=== PATIENT | female | born 1985 | race Caucasian/White ===

== ENCOUNTER 2016-08-01 09:32 | Emergency (ER) | payer OTHER ==
[~2016-08-01] VITALS: Ht 165.1 cm; Wt 67.0 kg
[2016-08-01 09:39] VITALS: Ht 165.1 cm; Wt 67.0 kg
[2016-08-01] MEDS ORDERED: KETOROLAC 15 MG INJ IM STA (10:58)
[2016-08-01] MEDS ORDERED: DIAZEPAM 5 MG TAB PO ONE (11:00)
[2016-08-01 11:02] LABS: URINE BLOOD (Dip) POC Negative (NEGATIVE)
--- NOTE | 2016-08-01 12:05 | ERD ---
ER Documentation Chief Complaint Date/Time DATE: 08/01/16 TIME: 11:54 Chief Complaint upper back pain [id number], affecting arm movement HPI Pleasant 31-year-old female presenting to emergency department for right-sided scapular pain neck pain and back pain. Patient reports symptoms started 2 weeks ago after staying at her sister's house and sleeping on a different pillow. Patient states she is active practices yoga and body resistance training. Patient has not been exercising for the last 2 weeks. Reports pain has sharp pain radiating down right arm. Patient reports a burning sensation. patient has history of scoliosis, lumbar pain, is seen by primary care physician , treated with Neurontin. Patient has been taking all routine medication as prescribed, reports Neurontin not helping with burning sensation in the right arm. Has used [id number] Tylenol with little relief of symptoms. Has had recent x-rays in primary care. Patient denies dysuria, headache, or injury. Patient denies nausea, vomiting, fever, or chills. ROS All systems reviewed and are negative except as per history of present illness. Medications Home Meds Active Scripts Hydrocodone/Acetaminophen (Avera 5-325 Tablet) 1 Each Tablet, 1 TAB PO Q6H Y for PAIN, #7 TAB Prov:YA,ANGIE 08/01/16 Discontinued Scripts Diazepam* (Valium*) 5 Mg Tablet, 5 MG PO Q8, #10 TAB Prov:YA,ANGIE 08/01/16 Allergies Allergies: Coded Allergies: celecoxib (Verified Allergy, Intermediate, swelling, 08/01/16) ibuprofen (Unverified Allergy, Mild, 08/01/16) Physical Exam Vitals Vital Signs Date Time Temp Pulse Resp B/P Pulse Ox O2 Delivery O2 Flow Rate FiO2 08/01/16 13:42 77 18 122/62 99 Room Air 08/01/16 09:39 98.1 74 20 124/87 100 Physical Exam Const: No acute distress Head: Eyes: ENT: Neck: Cervical spine is supple, no pain with rotation, lateral bending, flexion and hyperextension. No cervical point tenderness, palpable paraspinal tenderness, right trapezius tenderness, Resp: Cardio: Abd: Skin: Back: No vertebral point tenderness, patient has palpable spasm T3, point tender behind right scapula Ext: Upper Extremity -right l: Skin: No laceration, or evidence of external trauma Compartments: Soft Motor: Full active range of motion shoulder/elbow/wrist Sensation: Intact shoulder/pinky/middle finger/thumb web space Bones: Nontender humerus, palpable post scapular Pulses/Perfusion: 2+ radial, Capillary refill < 2 seconds Neur: Awake and alert Psych: Normal Mood and Affect Results 24 hrs Laboratory Tests Test 08/01/16 11:05 Bedside Urine Blood Negative Bedside Urine Glucose (UA) Negative Bedside Urine Ketones (LAB) Negative Bedside Urine Leukocyte Esterase (L Negative Bedside Urine Nitrite (LAB) Negative Bedside Urine Protein (LAB) Negative Bedside Urine pH (LAB) 7.0 Current Medications Medications (Trade) Dose Ordered Sig/Jorge Alberto Route PRN Reason Start Time Stop Time Status Last Admin Dose Admin Ketorolac Tromethamine (Toradol) 15 mg ONCE STAT IM 08/01/16 10:58 08/01/16 11:00 DC 08/01/16 11:23 Diazepam (Valium) 5 mg ONCE ONCE PO 08/01/16 11:00 08/01/16 11:01 DC 08/01/16 11:23 Acetaminophen/ Hydrocodone Bitart (Avera (5/325)) 1 tab ONCE ONCE PO 08/01/16 12:30 08/01/16 12:31 DC 08/01/16 12:52 Vital signs stable, nursing notes reviewed Procedures/MDM Pleasant 31-year-old female coming in today with acute right-sided scapular pain neck pain and back pain. Patient reports symptoms started 2 weeks ago after staying at her sister's house and sleeping on a different pillow. Patient has history of low back pain, is currently treated with Neurontin by her primary care physician, states pain is not improving with Neurontin. Patient has history of Celebrex and ibuprofen allergy has used Tylenol with little relief of symptoms. Patient physical exam unremarkable for abnormality. Full range of motion with internal and external rotation, palpable muscular tenderness. Patient receives Toradol and Valium for symptomatic relief with minimal relief of symptoms. Patient crying with reevaluation states that pain has not changed. Patient states I cannot pull my pants up when I go to the bathroom". Patient given Avera 5/325 reassessed after 20 minutes with improvement of symptoms. I feel the patient is stable for discharge at this time. I prescribed a short course of Avera with instructions for patient to follow-up with primary care physician for referral to physical therapy. I have discussed results, examination findings, the treatment plan with the patient and family present prior to discharge. Indications for emergent reevaluation, side effects of medication were also discussed. All questions were answered. Patient verbalizes understanding and agrees with plan of care. Departure Diagnosis: Primary Impression: Upper back pain on right side Additional Impression: Radiculopathy affecting upper extremity Condition: Good Patient Instructions: Back Pain (Acute Or Chronic) Additional Instructions: Thank you for for coming to [facility] for your care today. Please ask your nurse or provider if you have questions about your care today and do not leave until all your questions have been answered. Please use any medications given as directed and follow-up with your doctor (or the doctor you were referred to) in the next 2-3 days. If you do not have a primary care doctor you [place] [facility] [place] [facility] [place] You may also use motrin and tylenol as needed for fever and/or pain unless instructed otherwise by your provider or nurse. Indications for more urgent follow-up have been discussed, but you may return to the Emergency Department at ANY time for any worrisome or worsening symptoms. If you have abdominal pain, please know that no test or exam you received is perfect and you should follow up within 8 hours for continued pain. If you had any imaging studies today, such as an X-Ray or CT Scan, these studies will be reviewed later by a radiologist. You will be called if there are important findings that were not identified today, so make sure the contact information you provided at registration is correct. If you received any narcotic pain control medicine today, such as Vicodin, Morphine or Dilaudid, your coordination and judgment may be affected for a number of hours. Please do not drive or operate heavy machinery, and you may want someone to assist you at home. If you were given a prescription for narcotic medication, be aware that it is very addictive- use sparingly and only if necessary. ANGIE PANDYA Aug 01, 2016 12:05
[2016-08-01] MEDS ORDERED: TRAM50TA2 PO (12:08)
[2016-08-01] MEDS ORDERED: DIAZ-90 PO (12:08)
[2016-08-01] MEDS ORDERED: HYDROCODONE/APAP (5/325) TAB PO ONE (12:30)
[2016-08-01] MEDS ORDERED: HYDR-906 PO (13:34)
[2016-08-01 13:42] VITALS: BP 122/62; PULSE 77; RESP 18
== END 2016-08-01 13:42 | disposition home or self-care (01) ==
LOC: FTE 09:32
DX: M54.6 Pain in thoracic spine (principal); M54.10 Radiculopathy, site unspecified
CPT/HCPCS: 81003; 96372; J1885; Z7502; Z7610